=== PATIENT | female | born 1985 | race Caucasian/White ===

== ENCOUNTER 2021-05-24 15:24 | Outpatient (CLI) | payer OTHER, SELFPAY ==
--- NOTE | 2021-05-24 15:43 | MM_ITS ---
WS: [id number] BILATERAL 3D TOMOSYNTHESIS DIGITAL DIAGNOSTIC MAMMOGRAPHY WITH CAD CLINICAL INFORMATION: LT BREAST ASYMMETR COMPARISON: None. TECHNIQUE: Bilateral CC, MLO, and ML views. FINDINGS: Scattered fibroglandular densities bilaterally. Slightly asymmetric breast tissue central RIGHT breas t. This compresses out on the spot compression views. Palpable marker upper outer RIGHT breast. No un derlying mammographic abnormality deep to the palpable marker. LEFT breast is unremarkable. Ultrasoun d is pending. ULTRASOUND BREAST RIGHT TECHNIQUE: Ultrasound right breast focused area of concern. CLINICAL INFORMATION: LT BREAST ASYMMETRY COMPARISON: None. FINDINGS: Ultrasound RIGHT breast 10:00 position 5 cm from the nipple. No underlying cystic or solid lesions. N o suspicious abnormalities. Normal underlying parenchymal tissue. No lesions to target for biopsy. MM/[place] [id number] IMPRESSION: BI-RADS: 2-Benign FOLLOW UP: Age 38 Recommend annual screening mammography age 40
== END 2021-05-24 15:25 | disposition home or self-care (01) ==
PROVIDERS: Visit Provider Family Medicine
DX: N64.89 Other specified disorders of breast (principal)
CPT/HCPCS: 76642; 77062